=== PATIENT | male | born 1980 | race Caucasian/White ===

== ENCOUNTER 2018-05-19 18:39 | Inpatient (IN) | payer SELFPAY ==
--- NOTE | 2018-05-19 18:49 | EDPHY ---
H & P Source: Patient, Police, EMS Time Seen by Provider: 05/19/18 18:49 HPI/ROS: HPI CHIEF COMPLAINT: Young. HISTORY OF PRESENT ILLNESS: 38-year-old male, presents emergency room after was [facility] and [facility] placed on M1 hold. Was placed on M1 hold due to appearing manic, pressured speech, tangential thoughts,. Gravely disabled. Is reported that he just moved here from [place]. 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 He has never been in the [employer] Patient reports to me he has never been placed on M1 hold he has never had a psychiatric illness, he has never been put on psychiatric medication. Here in emergency room upon arrival he has pressured speech, tangential thoughts , appears to be psychotic and is fixated on running in the [employer]. Past Medical history: Patient has thrombocytosis. He is supposed to be taking hydroxy urea. Spoke to follow-up with [facility] but has not done so. Past Surgical History: Denies surgical history Social History: Denies drugs alcohol tobacco. Recently moved here from [place]. Family History: Noncontributory ROS REVIEW OF SYSTEMS: 10 Systems were reviewed and negative with the exception of the elements mentioned in the history of present illness. Exam Constitutional triage nursing summary reviewed, vital signs reviewed, awake/ alert. Eyes normal conjunctivae and sclera, EOMI, PERRLA. HENT normal inspection, atraumatic, moist mucus membranes, no epistaxis, neck supple/ no meningismus, no raccoon eyes. Respiratory clear to auscultation bilaterally, normal breath sounds, no respiratory distress, no wheezing. Cardiovascular rate normal, regular rhythm, no murmur, no edema, distal pulses normal. Gastrointestinal soft, non-tender, no rebound, no guarding, normal bowel sounds, no distension, no pulsatile mass. Genitourinary no CVA tenderness. Musculoskeletal no midline vertebral tenderness, full range of motion, no calf swelling, no tenderness of extremities, no meningismus, good pulses, neurovascularly intact. Skin pink, warm, & dry, no rash, skin atraumatic. Neurologic awake, alert and oriented x 3, AAOx3, moves all 4 extremities equally, motor intact, sensory intact, CN II-XII intact, normal cerebellar, normal vision, normal speech. Psychiatric pressured speech, tangential thoughts. Psychotic. Heme/Lymph/Immune no lymphadenopathy. Differential Diagnosis: Includes but is not limited to in a particular order acute psychosis, young, underlying mental illness, drug intoxication Medical Decision Making: Plan for this patient Zyprexa 10 mg p.o.. Blood draw for medical clearance, drug screen. Patient need mental health evaluation. Re-evaluation: 2122: Signed over to Dr. Galloway. Shift-change. M1 hold pending eval. (Basilio Phan) Constitutional: Initial Vital Signs Temperature (C) 36.8 C 05/19/18 18:54 Heart Rate 82 05/19/18 18:54 Respiratory Rate 18 05/19/18 18:54 Blood Pressure 128/73 H 05/19/18 18:54 O2 Sat (%) 96 05/19/18 18:54 O2 Delivery Mode Room Air Allergies/Adverse Reactions: Penicillins Allergy (Verified 05/19/18 19:02) Home Medications: Medication Instructions Recorded Hydroxyurea 05/19/18 Medical Decision Making ED Course/Re-evaluation: I took over care of this patient at 7:00 a.m.. This patient is on an M1 hold for manic behavior, psychosis and being gravely disabled. He has been evaluated by Behavioral Health. He is currently awaiting placement for psychiatric admission. 2:00 p.m., this patient has been accepted for transfer to [address] [place] [address] for inpatient psychiatric management. The accepting psychiatrist is Dr. Dow. I have filled out the appropriate transfer paperwork. The patient's remaining emergency room course under my care has been uneventful. The patient was transferred in stable condition. (Abran Hooks) Other Provider: 5:50 a.m.- Patient has been stable throughout my shift. He has been given his usual dose of hydroxy urea. He is currently awaiting placement. At 7:00 a.m., I anticipate the case will be signed out to the oncoming provider Dr. Hooks. (Nhung Gutierrez) - Data Points Laboratory Results: Laboratory Results 05/19/18 18:52 05/19/18 18:52 05/19/18 18:52 Smear Review By Camelia ROGEL MD Medications Given: Hydroxyurea (Hydrea) 500 mg PO BID RAJINDER Stop: 11/15/18 22:44 Last Admin: 05/20/18 08:40 Dose: 500 mg Discontinued Medications Ibuprofen (Motrin) 600 mg PO EDNOW ONE Stop: 05/20/18 12:31 Last Admin: 05/20/18 12:35 Dose: 600 mg Lorazepam (Ativan) 2 mg PO EDNOW ONE Stop: 05/19/18 23:31 Last Admin: 05/19/18 23:45 Dose: 2 mg Olanzapine (Olanzapine) 10 mg PO ONCE ONE Stop: 05/19/18 18:54 Last Admin: 05/19/18 19:00 Dose: 10 mg Olanzapine (Zyprexa Zydis) 10 mg PO EDNOW ONE Stop: 05/20/18 08:27 Last Admin: 05/20/18 09:00 Dose: 10 mg Departure - Departure Disposition: [facility] IP Clinical Impression: Young, Acute psychosis Referrals: Patient,NotPresent [Unknown] - As per Instructions
[2018-05-19] MEDS ORDERED: OLANZapine 5 MG TAB PO ONE (18:53)
[2018-05-19 19:48] LABS: PLATELET COUNT 1261 10^3/uL (150-400)
[2018-05-19] MEDS: HYDROXYUREA 500 MG CAP PO SCH (23:12)
[2018-05-19] MEDS ORDERED: LORazepam 1 MG TAB PO ONE (23:30)
[2018-05-19] MEDS ORDERED: LORazepam 1 MG TAB ONE (23:30)
[2018-05-19] MEDS ORDERED: D50W 25 GM/50 ML SYR IVP ONE (23:56)
[2018-05-20] MEDS ORDERED: OLANZapine DISINTEGR 10 MG TAB PO ONE (08:26)
[2018-05-20] MEDS: HYDROXYUREA 500 MG CAP PO SCH ×2 (08:40→20:25)
[2018-05-20] MEDS ORDERED: IBUPROFEN 600 MG TAB PO ONE ×2 (12:14→12:30)
--- NOTE | 2018-05-20 13:44 | ASMTTCLDSP ---
T[facility] Discharge Disposition Disposition: Answers: Admit Disposition Notes: Notes: Admit [facility]. Discharge Concerns/Recommendations: Notes: In consultation with [facility] ED physician, Nabeel Hooks MD and on-call psychiatrist, Keyon Joya MD, both concurred that pt appears to meet 27-65 criteria requiring psychiatric hospitalization as pt appears to be gravely disabled due to a mental illness condition. Was patient given the Answers: Yes Inpatient Behavioral Health Prohibited Belongings List while in the ED? For inpatient Keyon Joya MD admission, the following psychiatrist agreed to accept patient for admission to Behavioral Health ([facility]): Type of Hold: Answers: M1/72-hour Hold Hold initiated by: Answers: Other Notes: [facility] clinician Date Signed: 05/20/2018 01:43 PM Electronically Signed By:Pepito James
--- NOTE | 2018-05-20 13:45 | ASMTLCPROG ---
Notes Note: Notes: [facility] report faxed to [facility]. Dx: Unspecified Bipolar and Related Disorder 296.80 (F31.9) Date Signed: 05/20/2018 01:44 PM Electronically Signed By:Pepito James
--- NOTE | 2018-05-20 15:24 | PDCONSULT ---
Television Reporter Note: Patient seen/examined/discussed w JOHN León. Patient has florid young. Labs do not suggest medical cause; tsh added for completeness. Recommend starting aspirin 81 mg po daily for platelets 1200. continue hydoxyurea.
--- NOTE | 2018-05-20 15:28 | PDCONSULT ---
Policy Adviser Note: CC: Bella HPI: 38 y/o with history of thrombocytosis presents to the ED on a M1 hold. He denies SOB, chest pains, fevers/chills, N/V. He refused majority of questions stating, "No, thank you. I just want out of here. Thank you. I need to get out there to do what I need to do, but I'm in here." Medical History/Surgical History: Thrombocytosis Social: Per pt, moved from [place] recently, denies tobacco, illegal drugs, or alcohol Family History: Unknown Lab Data reviewed Plt 1261 ROS: 10 pt was reviewed and negative except for what was stated in HPI and below Constitutional: neg EENMT: neg Cardiac: neg Respiratory: neg GI: neg : neg Muscoloskeletal: neg Skin: neg Neuro: neg Hem/Lymphatic: neg Physical Exam Constitutional: Ill-appearing man, visibly distraught with constant body movements and pressured speech EENMT: BILLY, EOM Cardiac: S1, S2 SR Respiratory: CTAB GI: Hypoactive BS, soft non-tender abdomen : No bladder tenderness, fullness Musculoskeletal: Full ROM BUE/BLE Skin: No noted lesions, rashes Neuro: Sensation intact bilaterally Hem/Lymphatic: No cervical lymphadenopathy Psych: pressured, tangential speech A/P 38 y/o male with history of thrombocytosis presents with bella, M1 hold, needing transfer to behavioral health for an evaluation and treatment #Thrombocytosis -Suggested to the pt to f/u with outpatient hematology and resume hydroxyurea -Begin ASA 325 mg #Bella -Transition to behavioral health for an evaluation and treatment
[2018-05-20] MEDS ORDERED: MAGNESIUM HYDROXIDE 30 ML UDCUP PO PRN (18:14)
[2018-05-20] MEDS ORDERED: MAG HYDROX/AL HYDROX/SIMETH 30 ML UDCUP PO PRN (18:15)
[2018-05-20] MEDS: OLANZapine 10 MG TAB PO PRN (18:35)
[2018-05-20] MEDS: LORazepam 1 MG TAB PO PRN (18:35)
[2018-05-20] MEDS: ACETAMINOPHEN 325 MG TAB PO PRN (18:35)
[2018-05-21] MEDS: HYDROXYUREA 500 MG CAP PO SCH ×2 (08:34→18:29)
[2018-05-21] MEDS: ASPIRIN 325 MG TAB PO SCH (08:34)
--- NOTE | 2018-05-21 08:39 | ASMTBHMTP ---
Master Treatment Plan Master Treatment Plan Answers: Impaired Reality for: Date: 05/21/2018 Diagnosis on Admission: Unspecified Bipolar and Related Disorder 296.80 (F31.9) Expected length of stay: 3-5 Reason for admission: Notes: The patient stated, "I'm trying to find support for running... I'm focusing on running. That is why I moved out to [place]. I was terminated from [employer] because I was taking frequent breaks to rest. I'm not getting any sleep. 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 He reported that he is financially supported by someone who is like an "uncle" to him named "Abhinav." The patient reported having contact with a counselor named "Radha," although he can not recall how he became connected with her. She advised him to go to the crisis center where he was observed arguing with his father over the phone prior to being evaluated. Patient's stated presenting problems: Notes: The patient stated that he "wants to sleep, shower, run, work, and run again." The patient reported running 80-100 miles per week. He reported that this is his lifestyle. He stated, "A lot of people try to belittle me out of this lifestyle;" minimizing his profession. The patient reported some financial barriers and expressed interest in outpatient services. He denied having been treating for MH in the past. Patient's goals for treatment: Notes: The patient reported that he would like to discharge; he is very concerned about missing any training. 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 He reported that his "psychological state" when he is well is also a strength. He reported that he is "family oriented" and feels like he has "a purpose" in life. Identify supports outside of hospital: Notes: The patient is supported by a person named "Abhinav," who is like an uncle to the patient. Discharge criteria: Notes: Psychotic symptoms will be reduced or eliminated with return to baseline functioning in affect, thinking, and behaviors prior to discharge. Initial disposition plan/considerations: Notes: The patient will return to [place], [place]. Master Treatment Plan Required [facility] Psychiatrist signature: Answers: KIRSTY AkhtarP: RN on-shift signature: Answers: RN: Patient signature: Answers: Patient: Date Signed: 05/21/2018 08:37 AM Electronically Signed By:Priscilla Griggs
--- NOTE | 2018-05-21 09:51 | PDMN ---
Medical Necessity Medical necessity: [facility] [id number] Bipolar Disorders, Adult: Inpatient Care: 38 yo w / M1 hold/gravely disabled due to unspecified bipolar and related disorder
--- NOTE | 2018-05-21 11:51 | ASMTBHDC ---
Notes Note: Notes: CC confirmed client's follow up appts: [facility] with: [facility] [address] [place] [address] Intake Appt: SaturdayJune 03 (06/03/18) at 9am on the 2nd floor with Dev. Date Signed: 05/21/2018 11:50 AM Electronically Signed By:Naresh Stoll
[2018-05-21] MEDS: OLANZapine DISINTEGR 5 MG TAB PO ONE ×2 (13:21→13:53)
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
[2018-05-21] MEDS: OLANZapine 10 MG TAB PO PRN (18:29)
[2018-05-21] MEDS: OLANZapine DISINTEGR 10 MG TAB PO SCH ×2 (20:00→22:02)
[2018-05-21] MEDS: DIVALPROEX ER 500 MG TAB PO SCH ×2 (22:02→22:21)
[2018-05-22] MEDS: ASPIRIN 325 MG TAB PO SCH (08:56)
[2018-05-22] MEDS: HYDROXYUREA 500 MG CAP PO SCH ×3 (08:56→20:51)
[2018-05-22] MEDS: DIVALPROEX ER 500 MG TAB PO SCH (08:56)
[2018-05-22] MEDS ORDERED: OLANZapine DISINTEGR 5 MG TAB PO ONE (10:45)
--- NOTE | 2018-05-22 11:20 | SOAPPROG ---
SOAP Progress Note Assessment/Plan: Assessment: Bipolar Disorder I, Severe, bella. Slight improvement noted. (see subjective/ objective note). Patient is not safe to discharge at this time as patient continues to exhibit signs of acute bella, and express bella symptoms. Patient requires continued inpatient care because of current bella, and requires inpatient level of care to stabilize in order to no longer be gravely disabled due to mental illness. Patient is unable to independently attend to ADLs and communicate his basic needs; requires direction and prompting from staff, and is not attending to ADLs notably showering/hygiene. Patient could benefit from trial of mood stabilizer with VPA level on Saturday prior to discharge, and continued trial of Zyprexa for acute stabilization. Patient could benefit from continued inpatient hospitalization for crisis stabilization, safety, and medication evaluation. Plan: 1. Psychotropic medications: After reviewing options, risks, and benefits patient agrees to continue current medications with following changes: Depakote ER 1,500 mg po QD to improve adherence and Zyprexa Zydis 5 mg po BID for acute stabilization. No other medication changes at this time as more time is needed to determine ongoing tolerability and efficacy. Plan is to continue to observe patient for response and side effects from medications, and ongoing monitoring and evaluation. 2. Review with patient informed consent and recommendations for psychotropic medication treatment listed below 3. Labs: VPA level Saturday/Saturday prior to discharge 4. Therapy: continue milieu and group therapy 5. Further investigation including gathering information from patients relatives and review of past case records to inform treatment plan. 6. Safety/Wellness plan and follow-up outpatient appointments to be established prior to discharge. Next steps are for patient to meet with healthcare account manager to plan a safe discharge plan and establish outpatient services for ongoing treatment. 7. Confer with inpatient treatment team regarding treatment plan. 8. Psychosocial stressors addressed through case management including unemployment, lack of support system, and local psychiatric services 9. Legal status: M1 to be placed on [facility] for grave disability 10. Consider discharge on Saturday/Saturday if patient is in stable condition, safe , and has a safe discharge plan. PSYCHOTROPIC MEDICATION TREATMENT INFORMED CONSENT and RECOMMENDATIONS: Review nature of condition, diagnosis, and prognosis. Review nature and purpose of psychotropic medication treatment. Review type of psychotropic medications being ordered. Review risk and benefits of psychotropic medication treatment. Review probable length of time patient will need to take medications. Review risk and benefits of not undergoing psychotropic medication treatment. Review alternative treatments to psychotropic medications. Review psychotropic medications contraindications, drug-drug interactions, side effects, and importance of reporting any side effects to a psychiatric provider or nurse during inpatient hospitalization, and upon discharge to patients psychiatric outpatient provider, primary care provider, or other health care connector. Review importance of asking a nurse, psychiatric provider, or primary care provider any questions or problems concerning the psychotropic medications. Verify patient understands the information that has been provided, and understands, accepts, and agrees to psychotropic medications. Review patients safety plan and importance of patient to report to staff while hospitalized if patient is ever a danger to self/others, or unable to care for self, and upon discharge, the importance for patient to contact [facility] or [facility], or go to the nearest emergency room, if patient is ever a danger to self/others, or unable to care for self. Recommend that upon discharge patient establish medication management treatment with a psychiatric provider, establishes routine therapy appointments, and follow-up with primary care provider. Verify patient understands and agrees to these recommendations. 05/22/18 11:21 Subjective: Following up with patient for evaluation of bella and safety. Patient reports, "Slept really well last night, definitely what I needed. Feel much better today. Can I get outside to run, at least get 3-4 miles in. I need to be training, running more, a lot more." Patient expresses the following psychiatric symptoms agitation due to not being able to "run and train." Patient states, "I need to get outside and run, I need to be training all the time, need to be running." Patient reports not taking medications as prescribed , and describes response to medications as fair to Zyprexa 5 mg po QHS for sleep. Patient reports he did not receive Depakote ER 1,500 mg last night due to being asleep when RN came to administer this medication. Patient agrees to Depakote ER 1,500 mg po QD to improve adherences and agrees to continue Zyprexa Zydis 5 mg po BID for acute bella/agitation. Patient does not report undesirable side effects from the medications. Patient describes getting 11 hours of sleep, and reports feeling rested today. Patient reports sleeping 2 hours or less for over a month prior to admission. Patient requests to review labs, and requests repeat CBC for today. Objective: Vital Signs Temp Pulse Resp BP Pulse Ox 36.4 C 52 L 16 110/71 97 05/22/18 06:00 05/22/18 06:00 05/22/18 06:00 05/22/18 06:00 05/22/18 06:00 NURSING REPORT: Consulted with nursing for update on patients progress in treatment. Nurses report patient is engaged in treatment, is attending groups, slept 8 hours, expresses the following psychiatric symptoms: severe anxiety, exhibits the following psychiatric symptoms: hyperactive, pressured speech, hypertalkative, pacing halls, repeatedly asking to go outside to run and train; is eating all meals, is agreeable to medications and taking as prescribed with no report of side effects, with no s/s of EPS/akathisia, and denies SI/HI, denies A/V hallucinations, and denies delusions. 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 TREATMENT TEAM MEETING: Patient met with treatment team to review treatment plan and goals for hospitalization. Patient is notified he will be placed on STC due being gravely disabled and will require additional hospitalization to stabilize in order to no longer be gravely disabled. MSE: The patient is a well-nourished male looking stated chronological age. Attire is appropriate and dress is casual. Grooming status is appropriate. Ambulation is independent. Gait is normal and coordinated. Posture is normal and relaxed. Eye contact is appropriate. Motor activity is inappropriate and overactive, fidgeting, pacing, unable to sit still during interview; with no involuntary movements. Attitude is uncooperative and defensive. Patient appears distractible and does not relate well to this interviewer. Language production is spontaneous, rate is pressured, latency of response is shortened with loud volume. Articulation is clear. Patient reports mood as okay with incongruent and expansive affect. Patients thought process is disorganized, non -linear, illogical, with loose associations, tangential thought. Patient does not report suicidal/homicidal thoughts, ideas, or plans. Patient denies auditory, visual hallucinations. Patient denies delusions. Patient does not appear to be attending to internal stimuli. Patients attention and concentration are poor. Patient is oriented to person, place, and time. Patients insight and judgement are poor. - Time Spent With Patient Time Spent With Patient: 25 minutes, met with patient individually and with patient and treatment team. - Pending Discharge Pending Discharge Within 24 Hours: No Pending Discharge Within 48 Hours: No ICD10 Worksheet Patient Problems: Problems Problem Status Onset Acute psychosis Acute Bella Acute
[2018-05-22 12:10] LABS: PLATELET COUNT 1257 10^3/uL (150-400)
[2018-05-22] MEDS: LORazepam 1 MG TAB PO PRN (12:12)
--- NOTE | 2018-05-22 12:53 | ASMTCMCOM ---
CM Note CM Note Notes: Pt. reports "got some good sleep", adding he believes he got 11 hours of sleep. Pt. reports he is "80% back to myself", adding he has been able to relax. Pt. reports eating well. Pt. reports no issues with his medications, adding they "help me relax". Pt. reports attending "many groups". Pt. reports being unable to work out on the unit, adding he only runs. Pt. stated he may have slept too much. Pt. reports "don't like being crowds, like being on my own". Pt. denied SI, HI, AVH and paranoia. Pt. presents as alert, energetic, pressured speech, talkative, fair eye contact, and a bit guarded. Staff report pt. sleeping8 hours and refusing his HS depakote. Pt. 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 Date Signed: 05/22/2018 12:52 PM Electronically Signed By:Scarlett Lanza
[2018-05-22] MEDS ORDERED: LORazepam 1 MG TAB PO ONE (13:07)
[2018-05-22] MEDS: OLANZapine DISINTEGR 10 MG TAB PO SCH (20:51)
[2018-05-22] MEDS ORDERED: OLANZapine DISINTEGR 10 MG TAB PO SCH (21:00)
--- NOTE | 2018-05-23 08:01 | SOAPPROG ---
SOAP Progress Note Assessment/Plan: Assessment: Bipolar Disorder I, Severe, blela. Slight improvement noted. (see subjective/ objective note). Patient is not safe to discharge at this time as patient continues to exhibit signs of acute bella, and express bella symptoms. Patient requires continued inpatient care because of current bella, and requires inpatient level of care to stabilize in order to no longer be gravely disabled due to mental illness. Patient is unable to independently attend to ADLs and communicate his basic needs; requires continued direction and prompting from staff, distractibility; and is not attending to ADLs notably showering. Patient could benefit from trial of mood stabilizer with VPA level on Saturday prior to discharge, and continued trial of Zyprexa for acute stabilization. Patient could benefit from continued inpatient hospitalization for crisis stabilization, safety, and medication evaluation. Plan: 1. Psychotropic medications: After reviewing options, risks, and benefits patient agrees to continue current medications with following changes: Depakote ER 1,500 mg po QD for improved adherence and Zyprexa Zydis 5 mg po QD and 10 mg po QHS for acute stabilization. No other medication changes at this time as more time is needed to determine ongoing tolerability and efficacy. Plan is to continue to observe patient for response and side effects from medications, and ongoing monitoring and evaluation. 2. Review with patient informed consent and recommendations for psychotropic medication treatment listed below 3. Labs: VPA level Saturday prior to discharge 4. Therapy: continue milieu and group therapy 5. Further investigation including gathering information from patients relatives and review of past case records to inform treatment plan. 6. Safety/Wellness plan and follow-up outpatient appointments to be established prior to discharge. Next steps are for patient to meet with animal care attendant to plan a safe discharge plan and establish outpatient services for ongoing treatment. 7. Confer with inpatient treatment team regarding treatment plan. 8. Psychosocial stressors addressed through case management including unemployment, lack of support system, and local psychiatric services 9. Legal status: [facility] for grave disability 10. Consider discharge on Saturday if patient is in stable condition, safe, and has a safe discharge plan. PSYCHOTROPIC MEDICATION TREATMENT INFORMED CONSENT and RECOMMENDATIONS: Review nature of condition, diagnosis, and prognosis. Review nature and purpose of psychotropic medication treatment. Review type of psychotropic medications being ordered. Review risk and benefits of psychotropic medication treatment. Review probable length of time patient will need to take medications. Review risk and benefits of not undergoing psychotropic medication treatment. Review alternative treatments to psychotropic medications. Review psychotropic medications contraindications, drug-drug interactions, side effects, and importance of reporting any side effects to a psychiatric provider or nurse during inpatient hospitalization, and upon discharge to patients psychiatric outpatient provider, primary care provider, or other health career and technology education teacher. Review importance of asking a nurse, psychiatric provider, or primary care provider any questions or problems concerning the psychotropic medications. Verify patient understands the information that has been provided, and understands, accepts, and agrees to psychotropic medications. Review patients safety plan and importance of patient to report to staff while hospitalized if patient is ever a danger to self/others, or unable to care for self, and upon discharge, the importance for patient to contact [facility] or [facility], or go to the nearest emergency room, if patient is ever a danger to self/others, or unable to care for self. Recommend that upon discharge patient establish medication management treatment with a psychiatric provider, establishes routine therapy appointments, and follow-up with primary care provider. Verify patient understands and agrees to these recommendations. 05/23/18 08:01 Subjective: Following up with patient for evaluation of bella and safety. Patient reports, "Slept well again last night. Any way I could get outside to run? Need to be training. Would it be okay if I jogged in the [place]? Just to get something in. Really need to train. I could get on the bike, just not enough, need to be running, get my heart rate up." Patient reports taking medications as prescribed, and describes response to medications as fair. Patient agrees to continue Depakote ER 1,500 mg po QD to improve adherence and agrees to continue Zyprexa Zydis 5 mg po QD and 10 mg po QHS for acute bella/agitation. Patient requests Hydrea to be dosed at 1,500 mg po QD. Patient reports this dose for several years and reports his platelet count was well controlled at this dose. Patient agrees to follow-up at [facility] after discharge next week for medication evaluation and labs. Patient agrees to repeat CBC on Saturday with VPA level. Patient agrees to meet with hospitalist today for review of thrombocytosis treatment if indicated. Patient does not report undesirable side effects from the medications. Patient describes getting 11 hours of sleep, and reports feeling rested today. Patient reports plans to remain in [place] after discharge, and reports he has 3 roommates where he plans to return to live. Objective: Vital Signs Temp Pulse Resp BP Pulse Ox 36.5 C 60 16 111/60 97 05/23/18 06:00 05/23/18 06:00 05/23/18 06:00 05/23/18 06:00 05/23/18 06:00 Laboratory Results 05/22/18 09:10 NURSING REPORT: Consulted with nursing for update on patients progress in treatment. Nurses report patient is engaged in treatment, is attending groups, slept 8 hours, expresses the following psychiatric symptoms: severe anxiety, exhibits the following psychiatric symptoms: hyperactive, pressured speech, hypertalkative, pacing halls, continues to repeatedly ask to go outside to run and train, intrusive, asking to use phone several times, yesterday heard yelling while on phone, appeared irritable and agitated; is eating all meals, is agreeable to medications and taking as prescribed with no report of side effects, with no s/s of EPS/akathisia, and denies SI/HI, denies A/V hallucinations, and denies delusions. ASSEMBLER PRODUCT UPDATE: establish outpatient services for medication management and therapy prior to discharge. Appointment to be scheduled at [facility] after discharge to follow-up for thrombocytosis treatment. HOSPITALIST CONSULT: This SUPERINTENDENT PIER consult with MD hospitalist regarding thrombocytosis treatment and follow-up. This SUPERINTENDENT PIER requested current treatment review and recommendations. MSE: The patient is a well-nourished male looking stated chronological age. Attire is appropriate and dress is casual. Grooming status is appropriate. Ambulation is independent. Gait is normal and coordinated. Posture is normal and relaxed. Eye contact is appropriate. Motor activity is inappropriate and overactive with purposeful, organized, coordinated movements; with no involuntary movements. Attitude is cooperative and friendly. Patient appears attentive and relates well to this interviewer. Language production is spontaneous, rate is pressured, latency of response is shortened with appropriate volume. Articulation is clear. Patient reports mood as okay with incongruent and expansive affect. Patients thought process is tangential, organized, logical, and linear. Patient does not report suicidal/homicidal thoughts, ideas, or plans. Patient denies auditory, visual hallucinations. Patient denies delusions. Patient does not appear to be attending to internal stimuli. Patients attention and concentration are poor. Patient is oriented to person, place, and time. Patients insight and judgement are fair. Patient appears to be a reliable historian. Patient has no apparent dysfunction in recent or remote memory noted, and no evidence of gross cognitive dysfunction noted at any point during the interview. - Time Spent With Patient Time Spent With Patient: 15 minutes, met with patient individually. - Pending Discharge Pending Discharge Within 24 Hours: No Pending Discharge Within 48 Hours: No ICD10 Worksheet Patient Problems: Problems Problem Status Onset Acute psychosis Acute Bella Acute
[2018-05-23] MEDS: ASPIRIN 325 MG TAB PO SCH (08:45)
[2018-05-23] MEDS: DIVALPROEX ER 500 MG TAB PO SCH (08:45)
[2018-05-23] MEDS: HYDROXYUREA 500 MG CAP PO SCH (08:45)
[2018-05-23] MEDS ORDERED: OLANZapine DISINTEGR 10 MG TAB PO SCH (09:00)
[2018-05-23] MEDS ORDERED: OLANZapine DISINTEGR 5 MG TAB PO SCH (09:00)
--- NOTE | 2018-05-23 13:01 | ASMTCMCOM ---
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 He answers questions directly but returns to running theme. Refuses family contact states they are negative influence and has possible volleyball assistant coach in community as support. He has been in the area for 1 mo wants dc to community to get his apartment established and to get a job 'that will get me to my goal of running". He denies ah/vh ahvh no complaint of sleep but aggitated about inability to run. Pt signed [facility] for [facility] [phone] (v) [phone] (f) sent LEONA waiting return Date Signed: 05/23/2018 01:00 PM Electronically Signed By:Gretchen Kumar
[2018-05-23] MEDS: OLANZapine DISINTEGR 10 MG TAB PO SCH (20:40)
[2018-05-24] MEDS: DIVALPROEX ER 500 MG TAB PO SCH (08:23)
[2018-05-24] MEDS: HYDROXYUREA 500 MG CAP PO SCH (08:23)
[2018-05-24] MEDS: ASPIRIN 325 MG TAB PO SCH (08:23)
--- NOTE | 2018-05-24 17:28 | SOAPPROG ---
SOAP Progress Note Assessment/Plan: Assessment: Per Kashmir Allen's note: Assessment: Bipolar Disorder I, Severe, bella. Slight improvement noted. (see subjective/ objective note). Patient is not safe to discharge at this time as patient continues to exhibit signs of acute bella, and express bella symptoms. Patient requires continued inpatient care because of current bella, and requires inpatient level of care to stabilize in order to no longer be gravely disabled due to mental illness. Patient is unable to independently attend to ADLs and communicate his basic needs; requires continued direction and prompting from staff, distractibility; and is not attending to ADLs notably showering. Patient could benefit from trial of mood stabilizer with VPA level on Saturday prior to discharge, and continued trial of Zyprexa for acute stabilization. Patient could benefit from continued inpatient hospitalization for crisis stabilization, safety, and medication evaluation. Plan: 1. Psychotropic medications: After reviewing options, risks, and benefits patient agrees to continue current medications with following changes: Depakote ER 1,500 mg po QD for improved adherence and Zyprexa Zydis 5 mg po QD and 10 mg po QHS for acute stabilization. No other medication changes at this time as more time is needed to determine ongoing tolerability and efficacy. Plan is to continue to observe patient for response and side effects from medications, and ongoing monitoring and evaluation. Plan: 05/24/18 17:27 1. Patient's sxs seem to have improved significantly since admission. He does not have pressured speech, racing thoughts or decreased need for sleep. He continues to talk about his need to "run and train" but is not quite as obsessive about it. He is not able to do those things here and he is not engaging in alternative forms of goal-directed activity. 2. CC told MD that patient was fired for taking "too many breaks at work" and that patient reported to CC he was found "napping" for 1-2 hrs when he was supposed to be on short 15 min breaks. 3. Given that patient has no prior psych hx and no family members with bipolar disorder, his presentation is very unusual. It's not common for bipolar disorder , manic type to present in 38 yo for first time. Acute manic episode due to recreational drugs, prescription meds, or circumstances (shift work, altered sleep pattern, new job, acute stress, major life event, etc) is much more common under these conditions. It's possible that's what happened in this case. If so, then patient likely does not need to be on medication indefinitely, and may improve with less or lower dose of medication. MD strongly encouraged patient to f/u with outpatient provider who can assess patient's condition over time and adjust meds appropriately to ensure the most benefit with least probability of any adverse events. Patient agreed with this plan. 4. Continue current meds for now, but recommend re-evaluation of their appropriateness at regular intervals after discharge. Patient is aware he will need routine blood checks for VPA. 5. STC Subjective: Patient had some questions about his meds. He also wanted to know when his blood level would be checked. He understands that his labs will be reviewed by PMHNP who will discuss results with him prior to d/c. He denies any SI/HI, no AH /VH, no paranoia. Objective: Vital Signs Temp Pulse Resp BP Pulse Ox 36.4 C 62 14 114/84 H 94 05/24/18 06:00 05/24/18 06:00 05/24/18 06:00 05/24/18 06:00 05/24/18 06:00 Laboratory Results 05/22/18 09:10 MSE: Affect: Euthymic Mood: "OK" TP: Perseverates about running, but less so than at admission TC: Denies any SI/HI, no paranoid delusions Insight/Judgment : Improving - Time Spent With Patient Time Spent With Patient: 15" - Pending Discharge Pending Discharge Within 24 Hours: No Pending Discharge Within 48 Hours: No ICD10 Worksheet Patient Problems: Problems Problem Status Onset Acute psychosis Acute Bella Acute
[2018-05-24] MEDS: OLANZapine DISINTEGR 10 MG TAB PO SCH (19:15)
[2018-05-25] MEDS: ASPIRIN 325 MG TAB PO SCH (07:44)
[2018-05-25] MEDS: HYDROXYUREA 500 MG CAP PO SCH (07:44)
[2018-05-25] MEDS: DIVALPROEX ER 500 MG TAB PO SCH (07:45)
[2018-05-25] MEDS: ACETAMINOPHEN 325 MG TAB PO PRN (11:15)
--- NOTE | 2018-05-25 17:35 | SOAPPROG ---
SOAP Progress Note Assessment/Plan: Assessment: Per Kashmir Allen's note: Assessment: Bipolar Disorder I, Severe, bella. Slight improvement noted. (see subjective/ objective note). Patient is not safe to discharge at this time as patient continues to exhibit signs of acute bella, and express bella symptoms. Patient requires continued inpatient care because of current bella, and requires inpatient level of care to stabilize in order to no longer be gravely disabled due to mental illness. Patient is unable to independently attend to ADLs and communicate his basic needs; requires continued direction and prompting from staff, distractibility; and is not attending to ADLs notably showering. Patient could benefit from trial of mood stabilizer with VPA level on Saturday prior to discharge, and continued trial of Zyprexa for acute stabilization. Patient could benefit from continued inpatient hospitalization for crisis stabilization, safety, and medication evaluation. Plan: 1. Psychotropic medications: After reviewing options, risks, and benefits patient agrees to continue current medications with following changes: Depakote ER 1,500 mg po QD for improved adherence and Zyprexa Zydis 5 mg po QD and 10 mg po QHS for acute stabilization. No other medication changes at this time as more time is needed to determine ongoing tolerability and efficacy. Plan is to continue to observe patient for response and side effects from medications, and ongoing monitoring and evaluation. Plan: 05/24/18 17:27 1. Patient's sxs seem to have improved significantly since admission. He does not have pressured speech, racing thoughts or decreased need for sleep. He continues to talk about his need to "run and train" but is not quite as obsessive about it. He is not able to do those things here and he is not engaging in alternative forms of goal-directed activity. 2. CC told MD that patient was fired for taking "too many breaks at work" and that patient reported to CC he was found "napping" for 1-2 hrs when he was supposed to be on short 15 min breaks. 3. Given that patient has no prior psych hx and no family members with bipolar disorder, his presentation is very unusual. It's not common for bipolar disorder , manic type to present in 38 yo for first time. Acute manic episode due to recreational drugs, prescription meds, or circumstances (shift work, altered sleep pattern, new job, acute stress, major life event, etc) is much more common under these conditions. It's possible that's what happened in this case. If so, then patient likely does not need to be on medication indefinitely, and may improve with less or lower dose of medication. MD strongly encouraged patient to f/u with outpatient provider who can assess patient's condition over time and adjust meds appropriately to ensure the most benefit with least probability of any adverse events. Patient agreed with this plan. 4. Continue current meds for now, but recommend re-evaluation of their appropriateness at regular intervals after discharge. Patient is aware he will need routine blood checks for VPA. 5. RUST 05/25/18 17:29 1. 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 2. Claims he has a meeting with his assistant track coach on Saturday and would like to leave on Saturday. 3. CBC and VPA scheduled for Saturday. 4. Has appts for intake at [facility] on [facility] and f[facility]. 5. RUST Subjective: Patient is sitting in chair writing out a training schedule on several sheets of paper. He is very animated when talking, but MD is able to interrupt. Patient is willing to see providers for therapy and to prescribe meds at [facility]. He understands the r/b/se's of VPA and Olanzapine. He acknowledges he will f/u with [facility] to have routine blood draws in order to assess whether he is on the most appropriate dose of VPA. Objective: Vital Signs Temp Pulse Resp BP Pulse Ox 36.4 C 63 15 109/64 98 05/25/18 06:00 05/25/18 06:00 05/25/18 06:00 05/25/18 06:00 05/25/18 06:00 Laboratory Results 05/22/18 09:10 MSE: Affect: Euthymic Mood: "Good" TP: Tangential TC: Denies any SI/HI, perseverates about running/training for [employer] Insight/Judgment: Poor - Time Spent With Patient Time Spent With Patient: 15" - Pending Discharge Pending Discharge Within 24 Hours: Yes Pending Discharge Within 48 Hours: No Pending Discharge Date: 05/26/18 (Possible d/c on Saturday) Pending Discharge Time: 11:00 ICD10 Worksheet Patient Problems: Problems Problem Status Onset Acute psychosis Acute Bella Acute
[2018-05-25] MEDS: OLANZapine DISINTEGR 10 MG TAB PO SCH (20:04)
[2018-05-25] MEDS: LORazepam 1 MG TAB PO PRN (21:10)
[2018-05-26 06:55] VITALS: BP 110/77
[2018-05-26 08:24] LABS: PLATELET COUNT 794 10^3/uL (150-400)
[2018-05-26] MEDS: DIVALPROEX ER 500 MG TAB PO SCH (08:38)
[2018-05-26] MEDS: HYDROXYUREA 500 MG CAP PO SCH (08:39)
[2018-05-26] MEDS: ASPIRIN 325 MG TAB PO SCH (08:39)
--- NOTE | 2018-05-26 14:08 | BDS ---
REASON FOR ADMISSION: From the ED note dated 05/19/2018, the patient presented to the emergency room after was seen and evaluated by [facility] and placed on an M1 hold. The patient was placed on an M1 hold due to being gravely disabled due to appearing manic, with pressured speech and tangential thoughts. The patient reported that he just moved to [place] from [place]. 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 The patient has never been in the [place]. The patient appeared psychotic and fixed on running in the [employer] during the ED evaluation. 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 The patient also reports that he recently lost his job. The patient was admitted involuntarily on an M1 hold due to being gravely disabled due to a mental illness. The patient was admitted for safety, crisis stabilization, and medication management. ADMITTING DIAGNOSIS: Bipolar I disorder, severe, current or most recent episode manic with anxious distress. ADMISSION PHYSICAL EXAM: The patient was seen in the emergency department and was also seen on 05/20/2018, for internal medicine consultations. The patient was medically cleared for inpatient psychiatric hospitalization, medications, and treatment. For further details, please refer to the ED note dated 2017, and also to consultation notes dated 05/20/2018. ADMISSION LABS: 1. CBC from 05/19/2018, within normal limits, except white blood cells were elevated at 10.53. Platelet count was elevated at 1261. MPV was low at 8.1. Neutrophils were elevated at 78.0. Lymphocytes were low at 12.3. Absolute neutrophils were elevated at 8.21. 2. CBC was repeated on 05/22 and 05/26/2018, with platelet count trending down. Results from 05/26/2018: Red blood cells were low at 4.30. Platelet count was elevated at 794. MPV was low at 8.4. Basophils were low at 1.9. Absolute lymphocytes were low at 0.90. 3. Chemistry: BMP from 05/19/2018, glucose was elevated at 102. Hemoglobin A1c was within normal limits at 5.5. Liver function from 05/20/2018, within normal limits. Lipid panel from 05/20/2018, within normal limits, except triglycerides were elevated at 219. Cholesterol risk factor was elevated at 1.2. VLDL cholesterol was elevated at 44. Non-HDL cholesterol was elevated at 139. HDL cholesterol was low at 33. Cholesterol/HDL ratio was elevated at 5.21. 4. Toxicology screen from 05/19/2018, was negative for all substances of abuse screened and negative for ethyl alcohol. 5. Valproic acid level from 05/26/2018 was 65.9. MAJOR PROCEDURES OR TESTS: None. HOSPITAL COURSE: The most prominent symptoms and behaviors while the patient was here were pressured speech, hyperactivity, hyper talkative. The patient was pacing halls, ruminating and fixated on running and training. The patient also presented with tangential thought. Target symptom during hospitalization was acute young. Treatment modalities utilized were milieu and group therapy. Depakote ER 1500 mg p.o. daily was started to target mood symptoms, was tolerated with no report of side effects and with good response. Zyprexa Zydis 10 mg p.o. q.h.s. was started to target mood symptoms, was tolerated with no report of side effects and with good response. The patient reported a history of being on Hydrea and requested the medication to be increased from dose requested in the ED to 1500 mg p.o. daily. Medication was tolerated with no report of side effects and with good response. When reviewing labs with the patient on 05/26/2018, the patient reported that he thought his platelet count was decreasing too quickly. The patient stated that he has been on Hydrea 1000 mg p.o. daily prior to admission and requested the dose to be changed to 1000 mg p.o. daily. The patient was provided a prescription for this medication for 30 days, with plan to follow up with PCP for a repeat CBC on 06/03/2018, and adjustment to this medication as indicated at that time based on results of the CBC. The patient has improved considerably, with no signs of psychiatric symptoms and no psychiatric symptoms expressed at discharge. The patient reports he has improved since admission, states to be in stable condition, feels safe to discharge, and he contracts for safety. Patient's response to treatment was good. There were no adverse or unexpected results of treatment. The patient was safe throughout his stay, active in treatment, engaged in groups , and was appropriate with staff and other patients. The patient met with the treatment team prior to discharge to assess readiness to discharge and review discharge plan. The treatment team consensus is the patient is in stable condition, has a safe discharge plan, and is ready to discharge today. CONDITION ON DISCHARGE: Patient is in stable condition and is no longer a danger to self or others, and is not gravely disabled due to mental illness. Patient is no longer in need of inpatient level of care, and can be safely and effectively treated within the community. The patients level of risk at time of discharge is low. MSE: The patient is casually dressed and with good hygiene , and looks stated age. Patient is sitting, posture is upright, and position is relaxed. Patient appears awake, alert, and responds appropriately and reasonably during interview. Patient is engaged, relates well to interviewer, and emotional facial expression is appropriate to situation and changes appropriately with topic. Patient is cooperative, makes comfortable eye contact , and movements are voluntary, deliberate, coordinated, and smooth and even with no inappropriate movements. Patient makes laryngeal sounds effortlessly and shares conversation appropriately; pace of conversation is appropriate, and stream of talking is fluent; articulation is clear and understandable; word choice is effortless and appropriate for education level; completes sentences, occasionally pausing to think; rate and volume are appropriate for interview and setting. Patient reports mood as euthymic. Patients affect is stable with full variable range, congruent with mood, and appropriate to speech and circumstances. Patient has linear and logical thinking, with no loose associations, tangential thought, thought blocking, concrete thinking, or any other signs of formal thought disorder. Patient denies suicidal and homicidal ideation, and denies hallucinations and delusions. Patient appears to be a reliable historian with sound judgement and good insight into current condition. Patient has no apparent dysfunction in recent or remote memory noted , and no evidence of gross cognitive dysfunction noted at any point during the interview. DISCHARGE DIAGNOSES: Bipolar I disorder, severe, current or most recent episode manic with anxious distress. CURRENT MEDICATIONS: After reviewing options, risks and benefits with the patient, patient agrees to continue: 1. Hydrea 1000 mg p.o. daily for thrombocytosis. 2. Zyprexa 10 mg p.o. q.h.s. for mood symptoms. 3. Depakote ER 1500 mg p.o. daily for mood symptoms. Patient requests prescriptions for these medications at time of discharge. Prescriptions for 30 days for each medication are provided. Prescriptions are reviewed with the patient at time of discharge to ensure accuracy and patient understanding. DISPOSITION: The patient left hospital independently and voluntarily and plans to return to his home in [place], [place]. FOLLOWUP: product marketing coordinator reports the appropriate outpatient follow-up services have been established and outpatient appointments have been scheduled. The patient received written instructions with times and dates of outpatient follow-up appointments. The following follow-up recommendations were provided to the patient at discharge: Continue psychotropic medications as prescribed and attend appointments as scheduled. Report any side effects to a psychiatric outpatient provider, a primary care provider, or other health district manager primary care sales. Address any questions or problems concerning the psychotropic medications with a psychiatric outpatient provider, a primary care provider, or other health district manager primary care sales. Contact [facility] or [facility], or go to the nearest emergency room, if you are ever a danger to yourself/others, or unable to care for yourself. As soon as possible, establish a routine medication management treatment with a psychiatric provider, establish routine therapy appointments, and follow-up with a primary care provider. LEGAL COURSE: The patient was admitted on an M1 hold for involuntary inpatient psychiatric hospitalization. The patient was placed on a short-term certification during his hospitalization. The patient discharged today independently and voluntarily with short-term certification being terminated. ATTITUDE AT TIME OF DISCHARGE: The patients attitude was positive at time of discharge, and patient reports looking forward to discharging today. The patient reports he feels safe to discharge, is no longer a danger to himself or others, is in stable condition, and contracts for safety. Patient states he will continue medications as prescribed, and establish medication management treatment with an outpatient provider after discharge. Patient reports he understands the information that has been provided to him, and he understands, accepts, and agrees to psychotropic medications. Patient describes internal protective factors as the coping skills he has learned while hospitalized here, and he plans to continue to practice these coping skills after discharge. LABS AND RADIOLOGY STUDIES: There were no pending labs or studies at time of discharge. ADVANCE DIRECTIVES: There were no advance directives on file, and patient was full code during this hospitalization. The following psychotropic medication treatment informed consent and recommendations were provided to the patient at time of discharge. Patient reports he understands, accepts, and agrees to the information that has been provided. PSYCHOTROPIC MEDICATION TREATMENT INFORMED CONSENT and RECOMMENDATIONS: Review nature of condition, diagnosis, and prognosis. Review nature and purpose of psychotropic medication treatment. Review type of psychotropic medications being prescribed. Review risk and benefits of psychotropic medication treatment. Review probable length of time will need to take medications. Review risk and benefits of not undergoing psychotropic medication treatment. Review alternative treatments to psychotropic medications. Review psychotropic medications contraindications, side effects, and importance of reporting any side effects to a psychiatric provider, primary care provider, or other health district manager primary care sales. Review importance of asking a psychiatric provider or primary care provider any questions or problems concerning the psychotropic medications. Review safety plan and the importance to contact [facility] or [facility] , or go to the nearest emergency room, if ever a danger to yourself/others, or unable to care for yourself. Recommend upon discharge to establish routine medication management treatment with a psychiatric provider, establish routine therapy appointments, and follow-up with a primary care provider. Verify patient understands, accepts, and agrees to the information that has been provided. /[id number]/MODL MTDD
== END 2018-05-26 11:59 | disposition home or self-care (01) | DRG 885 ==
LOC: BBEH 05-20 15:30
PROVIDERS: ADMIT Psychiatry & Neurology Psychiatry; ATTEND Psychiatry & Neurology Psychiatry
DX: F31.2 Bipolar disorder, current episode manic severe with psychotic features (principal)
CPT/HCPCS: 80305; G0480

== ENCOUNTER 2018-07-16 17:29 | Emergency (ER) | payer MEDICAID ==
[2018-07-16] MEDS ORDERED: LORazepam 1 MG TAB PO ONE (17:43)
[2018-07-16] MEDS ORDERED: OLANZapine 5 MG TAB PO ONE (17:43)
--- NOTE | 2018-07-16 18:03 | EDPHY ---
H & P Stated Complaint: N/V, cough, RACHEL, "not feeling well" Source: Patient Exam Limitations: No limitations - Personal History Current Tetanus/Diphtheria Vaccine: Yes Current Tetanus Diphtheria and Acellular Pertussis (TDAP): Yes - Medical/Surgical History Hx Asthma: No Hx Chronic Respiratory Disease: No Hx Diabetes: No Hx Cardiac Disease: No Hx Renal Disease: No Hx Cirrhosis: No Hx Alcoholism: No Hx HIV/AIDS: No Hx Splenectomy or Spleen Trauma: No Other PMH: DVT, bipolar, high platelet count - Social History Smoking Status: Never smoked Time Seen by Provider: 07/16/18 17:31 HPI/ROS: CHIEF COMPLAINT: Anxiety, nausea, vomiting, cough HISTORY OF PRESENT ILLNESS: The patient has a history of bipolar mood disorder with in-patient psychiatric hospitalization in April of this year. The patient presents to the ED with complaints of anxiety, nausea, vomiting, cough and headache. He reports his symptoms have been worsening over the past day. The patient reportedly was on clonazepam for anxiety which he stop taking several months ago. In reviewing his discharge summary from the behavioral health floor he was discharged with Zyprexa and Depakote and is supposed to be on hydroxy urea for chronic thrombocytosis. The patient reports he has not been on these medications. He does report that he was hospitalized psychiatrically for a "mental breakdown" he is very vague about any ongoing psychiatric symptoms. REVIEW OF SYSTEMS: A comprehensive 10 point review of systems is otherwise negative aside from elements mentioned in the history of present illness. (Randy Fernando) - Physical Exam Exam: General Appearance: Anxious Eyes: Pupils equal and round no pallor or injection ENT, Mouth: Mucous membranes moist Respiratory: There are no retractions, lungs are clear to auscultation Cardiovascular: Regular rate and rhythm Gastrointestinal: Abdomen is soft and nontender, no masses, bowel sounds normal Neurological: A&O, normal motor function, normal sensory exam, normal cranial nerves Skin: Warm and dry, no rashes Musculoskeletal: Neck is supple nontender Extremities: symmetrical, full range of motion Psychiatric: Alert and oriented x3, bizarre affect, denies suicidal or homicidal ideation (Randy Fernando) Constitutional: Initial Vital Signs Temperature (C) 36.8 C 07/16/18 17:30 Heart Rate 79 07/16/18 17:30 Respiratory Rate 16 07/16/18 17:30 Blood Pressure 121/72 H 07/16/18 17:30 O2 Sat (%) 99 07/16/18 17:30 O2 Delivery Mode Room Air Allergies/Adverse Reactions: Penicillins Allergy (Verified 05/19/18 19:02) Home Medications: Medication Instructions Recorded Acetaminophen [Tylenol 325mg (*)] 650 mg PO Q6H PRN tab 05/26/18 Aspirin [Aspirin 325 mg (*)] 325 mg PO DAILY tab 05/26/18 Divalproex ER [Depakote ER 500 MG 1,500 mg PO DAILY 30 Days #90 tab 05/26/18 (*)] Hydroxyurea [Hydrea 500 mg (*)] 1,000 mg PO DAILY 30 Days #60 cap 05/26/18 OLANZapine [Zyprexa] 10 mg PO HS 30 Days #30 tablet 05/26/18 Hydroxyurea 2 tab PO DAILY #60 capsule 07/16/18 Medical Decision Making ED Course/Re-evaluation: Patient presents the ED with multiple complaints including cough, headache, nausea and anxiety. The patient is noted to have fairly significant thrombocytosis which she has had in the past. He has not been on hydroxy urea. Given his complaints of headache and thrombocytosis he was taken for a noncontrast head CT scan and CT angiogram both of which were normal. The patient received Zyprexa and Ativan upon arrival. The patient had an IV established and received a L of normal saline. He did have evidence of mild dehydration with a slightly elevated lactic acid of 2.5. Patient complained of a dry cough. His chest x-ray demonstrated no evidence of pneumonia or bronchitis. His influenza test was negative. I re-evaluated the patient at 9:00 p.m.. He continues to have a very bizarre affect. He is not particularly cooperative with a psychologic examination. Patient is given a meal at his request. I have ordered a urine toxicology screen. Given his history of decompensated bipolar mood disorder I have requested psychiatric evaluation. The patient is turned over to Dr. Grey at shift change pending psychiatric evaluation. (Randy Fernando) 0700AM: No acute events overnight. Patient resting. Signed over to Dr. Fox ( Basilio Phan) 7:00 a.m.-I assumed care of this patient at shift change. History of bipolar disorder, here voluntarily. 7:30 a.m.-seen by [facility], plan to place on M1 hold. 9am: after discussion with Dr. Dow, who knows this pt, [facility] has decided to send pt home. i agree with this assessment. f/u mental health (Eloisa Fox) Differential Diagnosis: Differential diagnosis considered includes asthma, bronchitis, influenza, dehydration, influenza, bipolar mood disorder, substance abuse (Randy Fernando ) Differential diagnosis includes though it is not limited to suicidal ideation, overdose, acute psychosis, self-injury, alcohol withdrawal. (Eloisa Fox) Other Provider: Plan for mental health evaluation for bipolar disorder. Care assumed at 9:00 p.m.. The voluntary, not an a hold. 2212: Signed to Dr. Phan with mental health evaluation pending. (Willian Grey) - Data Points Laboratory Results: Laboratory Results 07/16/18 18:16 07/16/18 18:16 07/16/18 07/16/18 21:55 18:16 Smear Review By Maribell MCMILLAN MD Urine Opiates Screen NEGATIVE (NEGATIVE) Urine Barbiturates NEGATIVE (NEGATIVE) Ur Phencyclidine Scrn NEGATIVE (NEGATIVE) Ur Amphetamine Screen NEGATIVE (NEGATIVE) U Benzodiazepines Scrn NON-NEGATIVE H (NEGATIVE) Urine Cocaine Screen NEGATIVE (NEGATIVE) U Marijuana (THC) Screen NEGATIVE (NEGATIVE) Medications Given: Discontinued Medications Sodium Chloride (Ns) 1,000 mls @ 0 mls/hr IV EDNOW ONE; Wide Open PRN Reason: Protocol Stop: 07/16/18 18:39 Last Admin: 07/16/18 18:48 Dose: 1,000 mls Ketorolac Tromethamine (Toradol) 15 mg IVP EDNOW ONE Stop: 07/16/18 18:52 Last Admin: 07/16/18 18:54 Dose: 15 mg Lorazepam (Ativan) 1 mg PO EDNOW ONE Stop: 07/16/18 17:44 Last Admin: 07/16/18 17:46 Dose: 1 mg Olanzapine (Olanzapine) 5 mg PO ONCE ONE Stop: 07/16/18 17:44 Last Admin: 07/16/18 17:46 Dose: 5 mg Departure - Departure Disposition: Home, Routine, Self-Care Clinical Impression: Thrombocytosis, Anxiety, Bipolar I disorder, severe, current or most recent episode manic, with anxious distress Condition: Fair Instructions: Bipolar Disorder (ED), Anxiety (ED) Referrals: [facility],. [Clinic] - As per Instructions Prescriptions: Hydroxyurea 2 tab PO DAILY #60 capsule
[2018-07-16] MEDS ORDERED: NS 1,000 ML IV ONE (18:38)
[2018-07-16] MEDS ORDERED: KETOROLAC 15 MG/1 ML SDV IVP ONE (18:51)
[2018-07-16 19:09] LABS: PLATELET COUNT 1496 10^3/uL (150-400)
[2018-07-16] MEDS ORDERED: IOPAMIDOL (ISOVUE 370) 100 ML BTL IV ONE (19:31)
[2018-07-17 08:00] VITALS: BP 131/84
--- NOTE | 2018-07-17 09:44 | ASMTTLCEVL ---
TLC Evaluation - Basic Information Evaluation Start Date and 07/16/2018 10:30 PM Time Hospital Status Answers: M1 Hold 72-hr M1 Hold Start Date 07/17/2018 07:30 AM and Time Patient statement Notes: "Headache, Nautious, Can't answer questions. Pt. is a 38 yr. old, single, employed male who bought himself to [facility] ED for medical reasons, headache and nausea. 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 PT was admitted to [address] [place] [address] at the end of April for treatment of Bipolar Disorder. PT stated. Im here because I was nauseous and had a headache, I cant talk to you about the past. I can only talk to you about my running and training. Narrative Notes: PT is 38 YO male, never , with no children, unemployed, with a Hx of Bipolar I, and hospitalized in April this year.The patient presents to the ED via ems with complaints of anxiety, nausea, vomiting, cough and headache. He reports his symptoms have been worsening over the past day. Pt is not taking his meds. Per ED report " Patient presents the ED with multiple complaints including cough, headache, nausea and anxiety. The patient is noted to have fairly significant thrombocytosis which he has had in the past. He has not been on hydroxy urea. Given his complaints of headache and thrombocytosis he was taken for a noncontrast head CT scan and CT angiogram both of which were normal. The patient received Zyprexa and Ativan upon arrival. The patient had an IV established and received a L of normal saline. He did have evidence of mild dehydration with a slightly elevated lactic acid of 2.5. Patient complained of a dry cough. His chest x-ray demonstrated no evidence of pneumonia or bronchitis. His influenza test was negative.I re-evaluated the patient at 9:00 p.m.. He continues to have a very bizarre affect. He is not particularly cooperative with a psychologic examination. Patient is given a meal at his request. I have ordered a urine toxicology screen. Given his history of decompensated bipolar mood disorder I have requested psychiatric evaluation." Diagnosis History Notes: Per previous discharge summary Bipolar I disorder, severe, current or most recent episode manic with anxious distress. Currenty PT denies any mental health diagnosis. Prior suicide attempts Notes: PT denies any past or present suicidal or homicidal ideation or self harm. Prior hospitalizations Notes: Pt was hospitalized at [address] [place] [address] in April,, and denied any prior hospitalizations. Treatment Responses Notes: Previous Discharge Summary [facility] Patient Name: RONAL MEDRANO Rpt#: [id number] Unit Number: [id number] Attending/ER Physician: Bo Joya MD Patient Type: DIS IN Adm Date/Source: 05/20/18 EMR Discharge Date: 05/26/18 Primary Carrier: SELF PAY REASON FOR ADMISSION: From the ED note dated 05/19/2018, the patient presented to the emergency room after was seen and evaluated by [facility] and placed on an M1 hold. The patient was placed on an M1 hold due to being gravely disabled due to appearing manic, with pressured speech and tangential thoughts. The patient reported that he just moved to [place] from [place]. 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 The patient has never been in the [employer]. The patient appeared psychotic and fixed on running in the [employer] during the ED evaluation. The patient reported to this RUM PROCESSING OPERATOR that he has not slept for over 2 hours for the last month. The patient also reports that he recently lost his job. The patient was admitted involuntarily on an M1 hold due to being gravely disabled due to a mental illness. The patient was admitted for safety, crisis stabilization, and medication management. ADMITTING DIAGNOSIS: Bipolar I disorder, severe, current or most recent episode manic with anxious distress. ADMISSION PHYSICAL EXAM: The patient was seen in the emergency department and was also seen on 05/20/2018, for internal medicine consultations. The patient was medically cleared for inpatient psychiatric hospitalization, medications, and treatment. For further details, please refer to the ED note dated 05/19/2018, and also to consultation notes dated 05/20/2018. MAJOR PROCEDURES OR TESTS: None. HOSPITAL COURSE: The most prominent symptoms and behaviors while the patient was here were pressured speech, hyperactivity, hyper talkative. The patient was pacing halls, ruminating and fixated on running and training. The patient also presented with tangential thought. Target symptom during hospitalization was acute young. Treatment modalities utilized were milieu and group therapy. Depakote ER 1500 mg p.o. daily was started to target mood symptoms, was tolerated with no report of side effects and with good response. Zyprexa Zydis 10 mg p.o. q.h.s. was started to target mood symptoms, was tolerated with no report of side effects and with good response. The patient reported a history of being on Hydrea and requested the medication to be increased from dose requested in the ED to 1500 mg p.o. daily. Medication was tolerated with no report of side effects and with good response. When reviewing labs with the patient on 05/26/2018, the patient reported that he thought his platelet count was decreasing too quickly. The patient stated that he has been on Hydrea 1000 mg p.o. daily prior to admission and requested the dose to be changed to 1000 mg p.o. daily. The patient was provided a prescription for this medication for 30 days, with plan to follow up with PCP for a repeat CBC on 06/03/2018, and adjustment to this medication as indicated at that time based on results of the CBC. The patient has improved considerably, with no signs of psychiatric symptoms and no psychiatric symptoms expressed at discharge. The patient reports he has improved since admission, states to be in stable condition, feels safe to discharge, and he contracts for safety. Patient's response to treatment was good. There were no adverse or unexpected results of treatment. The patient was safe throughout his stay, active in treatment, engaged in groups, and was appropriate with staff and other patients. The patient met with the treatment team prior to discharge to assess readiness to discharge and review discharge plan. The treatment team consensus is the patient is in stable condition, has a safe discharge plan, and is ready to discharge today. CONDITION ON DISCHARGE: Patient is in stable condition and is no longer a danger to self or others, and is not gravely disabled due to mental illness. Patient is no longer in need of inpatient level of care, and can be safely and effectively treated within the community. The patients level of risk at time of discharge is low. MSE: The patient is casually dressed and with good hygiene, and looks stated age. Patient is sitting, posture is upright, and position is relaxed. Patient appears awake, alert, and responds appropriately and reasonably during interview. Patient is engaged, relates well to interviewer, and emotional facial expression is appropriate to situation and changes appropriately with topic. Patient is cooperative, makes comfortable eye contact, and movements are voluntary, deliberate, coordinated, and smooth and even with no inappropriate movements. Patient makes laryngeal sounds effortlessly and shares conversation appropriately; pace of conversation is appropriate, and stream of talking is fluent; articulation is clear and understandable; word choice is effortless and appropriate for education level; completes sentences, occasionally pausing to think; rate and volume are appropriate for interview and setting. Patient reports mood as euthymic. Patients affect is stable with full variable range, congruent with mood, and appropriate to speech and circumstances. Patient has linear and logical thinking, with no loose associations, tangential thought, thought blocking, concrete thinking, or any other signs of formal thought disorder. Patient denies suicidal and homicidal ideation, and denies hallucinations and delusions. Patient appears to be a reliable historian with sound judgement and good insight into current condition. Patient has no apparent dysfunction in recent or remote memory noted, and no evidence of gross cognitive dysfunction noted at any point during the interview. DISCHARGE DIAGNOSES: Bipolar I disorder, severe, current or most recent episode manic with anxious distress. CURRENT MEDICATIONS: After reviewing options, risks and benefits with the patient, patient agrees to continue: 1. Hydrea 1000 mg p.o. daily for thrombocytosis. 2. Zyprexa 10 mg p.o. q.h.s. for mood symptoms. 3. Depakote ER 1500 mg p.o. daily for mood symptoms. Patient requests prescriptions for these medications at time of discharge. Prescriptions for 30 days for each medication are provided. Prescriptions are reviewed with the patient at time of discharge to ensure accuracy and patient understanding. DISPOSITION: The patient left hospital independently and voluntarily and plans to return to his home in [place], [place]. FOLLOWUP: public information coordinator reports the appropriate outpatient follow-up services have been established and outpatient appointments have been scheduled. The patient received written instructions with times and dates of outpatient follow-up appointments. The following follow-up recommendations were provided to the patient at discharge: Continue psychotropic medications as prescribed and attend appointments as scheduled. Report any side effects to a psychiatric outpatient provider, a primary care provider, or other health patient care representative. Address any questions or problems concerning the psychotropic medications with a psychiatric outpatient provider, a primary care provider, or other health patient care representative. Contact [facility] or [facility], or go to the nearest emergency room, if you are ever a danger to yourself/others, or unable to care for yourself. As soon as possible, establish a routine medication management treatment with a psychiatric provider, establish routine therapy appointments, and follow-up with a primary care provider. LEGAL COURSE: The patient was admitted on an M1 hold for involuntary inpatient psychiatric hospitalization. The patient was placed on a short-term certification during his hospitalization. The patient discharged today independently and voluntarily with short-term certification being terminated. ATTITUDE AT TIME OF DISCHARGE: The patients attitude was positive at time of discharge, and patient reports looking forward to discharging today. The patient reports he feels safe to discharge, is no longer a danger to himself or others, is in stable condition, and contracts for safety. Patient states he will continue medications as prescribed, and establish medication management treatment with an outpatient provider after discharge. Patient reports he understands the information that has been provided to him, and he understands, accepts, and agrees to psychotropic medications. Patient describes internal protective factors as the coping skills he has learned while hospitalized here, and he plans to continue to practice these coping skills after discharge. LABS AND RADIOLOGY STUDIES: There were no pending labs or studies at time of discharge. ADVANCE DIRECTIVES: There were no advance directives on file, and patient was full code during this hospitalization. The following psychotropic medication treatment informed consent and recommendations were provided to the patient at time of discharge. Patient reports he understands, accepts, and agrees to the information that has been provided. PSYCHOTROPIC MEDICATION TREATMENT INFORMED CONSENT and RECOMMENDATIONS: Review nature of condition, diagnosis, and prognosis. Review nature and purpose of psychotropic medication treatment. Review type of psychotropic medications being prescribed. Review risk and benefits of psychotropic medication treatment. Review probable length of time will need to take medications. Review risk and benefits of not undergoing psychotropic medication treatment. Review alternative treatments to psychotropic medications. Review psychotropic medications contraindications, side effects, and importance of reporting any side effects to a psychiatric provider, primary care provider, or other health patient care representative. Review importance of asking a psychiatric provider or primary care provider any questions or problems concerning the psychotropic medications. Review safety plan and the importance to contact [facility] or [facility], or go to the nearest emergency room, if ever a danger to yourself/others, or unable to care for yourself. Recommend upon discharge to establish routine medication management treatment with a psychiatric provider, establish routine therapy appointments, and follow-up with a primary care provider. Verify patient understands, accepts, and agrees to the information that has been provided. History of violence Notes: None reported Therapist: none Psychiatrist: none Medications (name, dosage, route, freq uency) Notes: Hydroxyurea [Hydrea 500 mg (*)] 1,000 mg PO DAILY 30 Days #60 cap 05/26/18 OLANZapine [Zyprexa] 10 mg PO HS 30 Days #30 tablet 05/26/18 Allergies/Reaction Notes: Per ED report - Penicillins Allergy (Verified 05/19/18 19:02) Sleep Notes: PT reports he is leeping fine. Appetite Notes: PT reports his appetite is fine. Medical/Surgical history Notes: The patient is noted to have fairly significant thrombocytosis which he has had in the past. He has not been on hydroxy urea. Given his complaints of headache and thrombocytosis he was taken for a noncontrast head CT scan and CT angiogram both of which were normal. Substance use history (frequency, intensity, his tory, duration) Notes: The patient denies all substance use. 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 Family composition Notes: PT said his parents live in [place]. He said he has a sister but he doesn't know where she is. Need for family Answers: No participation in patient's care Family psychiatric/substance abuse history Notes: Per previous psychiatric assessment - The patient is unsure of any family history of mental illness. The patient denies any family history of suicide or suicide attempts. The patient reports a family history of substance use, as his sister abused illicit drugs. Developmental history Notes: Patient reports he was born in [place], [place] and raised the majority of his life in [place] by his father. The patient reports he currently lives in [place], [place] with 3 roommates. The patient reports he met all his developmental milestones. Reports learning delay and difficulty as a speech impediment. Abuse concerns Answers: None Marital status/children Notes: Per previous psychiatric assessment "The patient reports he is currently not in a relationship, has never been and has no children." Living situation Notes: PT reports he lives in [place] and is renting an apartment with an elderly roommate. Sexual history/orientation Notes: The patient describes his sexual orientation as heterosexual. Peer support/family strengths Notes: Per previous psychiatric assessment - The patient reports no family contacts other than his father, and reports that he does not got along well with his father. The patient reports no current social functioning. Reports he does have 1 friend, however, he does not get along well with his friend. Education level/history Notes: PT reported he graduated from high school and has an Associates degree. 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 Currently PT reported he is working at [employer] and [employer]. Notes: None report Legal Notes: Reports no current or history of legal troubles or charges. Methodist/Spiritual Notes: Reports mandaeism or spiritual practice as Mosque. Leisure Notes: The patient reports his only hobby is running. Collateral Notes: This research physicist spoke with [facility] and they said PT has not followed up with treatment with them. They also reported that a friend had called their Crisis line on 06/28/18 to report that PT appeared manic and that they were concerned about him. [facility] attempted to reach PT but were not successful. Patient's strengths Answers: Athletic (Please select at least TWO strengths): Intelligent Supportive Family TLC Evaluation - Mental Status Exam Appearance: Answers: Disheveled Eye Contact: Answers: Intermittent Mood: Answers: Irritable Affect: Answers: Guarded Suspicious Behavior: Answers: Cooperative Anxious Guarded Speech: Answers: Illogical Circumstantial Thought Process: Answers: Disorganized Insight: Answers: Fair Judgement: Answers: Fair Manic Signs/Symptoms Answers: Grandiosity Hallucinations: Answers: None Delusions: Answers: Grandiose Pt reported to have Answers: No suicidal/self-injuring ideation/behavior? Pt reported to be making Answers: No suicidal/self-injuring threats? Pt reported to have Answers: No aggression/assault ideation/behavior? Pt exhibits inability to Answers: No care for self/grave disability? Ideation/behavior is Answers: No chronic? Patient has a specific Answers: No plan? Pt has access to means to Answers: No execute the plan? Ideation involves Answers: No serious/lethal intent? Ideation has Answers: No delusional/hallucinatory content? History of Answers: No suicidal/self-injuring ideation, behavior, or threats? History of Answers: No aggressive/assaultive ideation, behavior, or threats? History of serious Answers: No physical harm to self/others while in treatment setting? Date Signed: 07/17/2018 09:43 AM Electronically Signed By:Dalia Howell
--- NOTE | 2018-07-17 09:50 | ASMTTCLDSP ---
TLC Discharge Disposition Disposition: Answers: Discharge Disposition Notes: Notes: PT reported he will go to pharmacy to get medication for his high platelet condition, an then plans to go to work. PT is not interested in mental health treatment at this time. Discharge Concerns/Recommendations: Notes: In consultation with [facility] ED physician, Dasia Fox MD, and on-call psychiatrist, Keyon Joya MD, both concurred that pt does not appear to meet 27-65 criteria requiring psychiatric hospitalization as pt does not appear to be an imminent risk of harm to self/others/gravely disabled due to a mental illness condition. Dr. Joya provided telephone ordere read back vacating M1 hold at 9:00am. Was patient given the Answers: Not applicable Inpatient Behavioral Health Prohibited Belongings List while in the ED? Date and time M1 hold 07/17/2018 09:30 AM vacated (time format is hh:mm): Type of Hold: Answers: M1/72-hour Hold Hold initiated by: Answers: Other Notes: Dalia Howell LCSW Date Signed: 07/17/2018 09:50 AM Electronically Signed By:Dalia Howell
== END 2018-07-17 09:55 | disposition home or self-care (01) ==
LOC: EDUNIT#
DX: F31.2 Bipolar disorder, current episode manic severe with psychotic features (principal); F41.9 Anxiety disorder, unspecified; E86.9 Volume depletion, unspecified; R11.2 Nausea with vomiting, unspecified; D47.3 Essential (hemorrhagic) thrombocythemia; Z86.711 Personal history of pulmonary embolism; Z88.0 Allergy status to penicillin
CPT/HCPCS: 80305; 96374; J1885; Q9967